=== PATIENT | male | born 1970 | race Caucasian/White ===

== ENCOUNTER 2016-11-11 17:24 | Inpatient (IN) | payer SELFPAY ==
[~2016-11-11] VITALS: Ht 185.4 cm; Wt 111.7 kg
[2016-11-11] VITALS (10 sets, daily range): BP systolic 134–178; BP diastolic 60–76; PULSE 79–86; RESP 13–27; TEMP 98.1; O2SAT 93–100; Ht 185.4 cm; Wt 111.7 kg
[~2016-11-11 17:24] MED LIST: ATEN25TA PO; GABA-329 PO; INSU100I14 SQ; INSU100V8 SQ
--- NOTE | 2016-11-11 17:48 | ERPDOC ---
Departure Disposition Decision Date: November 11, 2016 Disposition Decision Time: 19:17 Disposition: 02 TO [facility] Impression Impression Impression: Primary Impression: DKA (diabetic ketoacidoses) Additional Impression: Hyperkalemia Seen By: Mid-level only Referrals: STEVE ESCOBAR MD (Family) Problems/Meds/Labs Reviewed?: Yes Medications reviewed and manag: Yes Follow up care ordered?: Yes Mental Status: Alert HPI - Chest Pain General Chief Complaint: Dizzy Stated Complaint: CP, DIZZY Time Seen by Provider: 17:47 Source: patient HPI - Chest Pain Initial Comments 46 YO presents to ED with report of dizziness, numbness over entire body and nausea. Says that the numbness over the entire body has been for the past 2-3 weeks. Was worked up at [facility] with no etiology found. Patient says that numbness has continued (patient able to walk, talk, eat and drink). Reports being dizzy today and nauseated. Having difficulty standing up. Patient has been an insulin dependent diabetic since age 25. Patient does not check his blood sugars. states that patient has had some slurred speech today. Denies fever, chills, SOA, CP, abdominal pain, dysuria, ataxia. Allergies: Coded Allergies: codeine (Verified Allergy, Unknown, 11/11/16) Past History Past Medical History Metabolic: diabetes, hypertension Cardiac: DENIES: angina Respiratory: DENIES: asthma GI: DENIES: ulcers Male: DENIES: renal insufficiency Neurological: neuropathy Musculoskeletal: back pain Psychological: DENIES: depression Surgical History General: back Joint: carpal tunnel Family History Family PMH: FOUND: other (noncontributory) Vaccines Hx Influenza Vaccination: Yes Social History Sexuality: female partner Review of Systems Constitutional Constitutional: dizziness, weakness, DENIES: chills, fever Eyes General: DENIES: erythema, exudate Lids/Accessories: DENIES: erythema, swelling ENMT Ears: DENIES: pain Sinuses: DENIES: congestion, rhinorrhea Mouth/Throat: DENIES: sore throat Cardiovascular Cardiac: DENIES: chest pain, murmur Rhythm/Rate: DENIES: palpitations Pulmonary Respiratory: DENIES: cough, dyspnea GI Upper Abdomen: nausea, DENIES: pain Lower Abdomen: DENIES: diarrhea, pain General: DENIES: dysuria, pain Musculoskeletal General: pain (chronic back pain), DENIES: cramps Integumentary Skin: DENIES: color change, itching, rash Neurological General: numbness, DENIES: ataxia, change in strength, paralysis/paresis, weakness Psychiatric Psychiatric: DENIES: anxiety, depression, nervousness Physical Exam General General Nourishment: well nourished, well developed, adult General Body Habitus: well groomed Vitals and Pain First Documented Vital Signs Date Time Temp Pulse Resp B/P Pulse Ox O2 Delivery O2 Flow Rate FiO2 11/11/16 17:26 97.4 76 24 172/79 99 Room Air Weight: Kilograms: Height (feet): 5 Height (inches): 10 Triage Pain Scale: Eyes (brief) Eyes Brief: found: EOMI ENMT (brief) ENMT Brief: NOT FOUND: nasal exudate, nasal swelling Neck (brief) Neck: FOUND: trachea midline Respiratory (brief) Respiratory: FOUND: clear all [place], equal bilaterally, symmetrical Cardiovascular (brief) Cardiac: FOUND: regular rate, regular rhythm Abdomen (brief) Abdominal Brief: FOUND: bowel normo active x4, soft, NOT FOUND: tender Musculoskeletal (brief) Musculoskeletal Brief: NOT FOUND: deformity, loss of motion Integumentary (brief) Integumentary Brief: FOUND: dry, warm Neurologic Mental Status: FOUND: alert, oriented Sensation: FOUND: soft touch intact x4 ext DTR's : DTR Side: bilateral DTR Location: Triceps, Patellar DTR Grade: 2+ Psychiatric Attitude: FOUND: demanding Differential Diagnoses Considering: Acute [place]/Ischemia, Cardiac Dysrhythmia, CVA - Thrombotic, CVA - Hemorrhagic, DKA, Hypoglycemia, Long QT Syndrome, Orthostatic Hypotension, TIA, Vasovagal Reaction Progress Results/Orders Orders Procedure Category Date Status Time Cmp - Comprehensive LAB 11/11/16 Complete Metabolic 17:57 Cbc W/Auto LAB 11/11/16 Complete Diff-Reflex Manual 17:57 Troponin I W LAB 11/11/16 Complete Hemolysis Index 17:57 Ct Head W/O Contrast CT 11/11/16 Taken 17:57 Iv Lock (Ed Only) EDM 11/11/16 Transmitted 17:57 Orthostatic Bp/Pulse EDM 11/11/16 Transmitted 17:57 Ondansetron Inj PHA 11/11/16 Complete (Zofran) 18:00 Normal Saline (Normal PHA 11/11/16 Complete Saline Iv) 18:15 Ua, Dip Wreflex LAB 11/11/16 Logged Microsc & Body Care Manager 18:42 UA, LAB 11/11/16 Complete Dip&Micro(Complete) & 18:59 Normal Saline (Normal PHA 11/11/16 Complete Saline Iv) 19:30 Insulin Regular PHA 11/11/16 Complete (Novolin R) 19:30 Blood Gas, Venous - LAB 11/11/[address] In Facility: ED ADM 11/11/16 Transmitted Npo: Nothing By Mouth DIET 11/12/16 Transmitted Breakfast Manage Oxygen MAXIMINO 11/11/16 In Process Administration 19:48 Measure Vital Signs MAXIMINO 11/11/16 In Process 19:48 Blood Glucose MAXIMINO 11/11/16 In Process Assessment Bgm 19:48 Nurse To Order Lab MAXIMINO 11/11/16 In Process 19:48 Normal Saline (Normal PHA 11/11/16 Logged Saline Iv) 19:48 Normal Saline (Ns) PHA 11/11/16 Logged W/Insulin Regular 20:00 Dextrose 50% Pfs PHA 11/11/16 Logged (D50w) 20:00 Glucose Management MAXIMINO 11/11/16 In Process 19:48 Dka Iv Fluid Changes MAXIMINO 11/11/16 In Process 19:48 Oxygen, Continuous RT 11/11/16 Logged 19:48 Aspirin (Asa) PHA 11/12/16 Logged 09:00 Ondansetron Inj PHA 11/11/16 Logged (Zofran) 20:00 Metoclopramide PHA 11/11/16 Logged (Reglan Inj) 20:00 Heparin (Heparin PHA 11/12/16 Logged Sub-Q) 01:00 Pantoprazole PHA 11/11/16 Logged (Protonix Iv) 21:00 Compression Type Scd/ MAXIMINO 11/11/16 In Process Braden Hose 19:48 Bmp - Basic Metabolic LAB 11/11/16 Complete Panel 20:15 Bmp - Basic Metabolic LAB 11/11/16 Complete Panel 22:15 Nicotine Patch PHA 11/12/16 Logged (Nicoderm) 09:00 Normal Saline (Normal PHA 11/11/16 Logged Saline Iv) 21:15 Normal Saline (Normal PHA 11/11/16 Logged Saline Iv) 22:15 Blood Gas, Venous - LAB 11/11/16 Complete VBG 22:00 Blood Gas, Venous - LAB 11/12/16 Logged VBG Bmp - Basic Metabolic LAB 11/12/16 Logged Panel 00:00 Bmp - Basic Metabolic LAB 11/12/16 Logged Panel 02:00 Bmp - Basic Metabolic LAB 11/12/16 Logged Panel 04:00 Bmp - Basic Metabolic LAB 11/12/16 Logged Panel 06:00 Bmp - Basic Metabolic LAB 11/12/16 Logged Panel 08:00 Lab Results Laboratory Tests Test 11/11/16 18:13 11/11/16 18:26 11/11/16 18:50 11/11/16 18:59 Glucometer > 500mg/dL White Blood Count 11.9T/MM3 Red Blood Count 5.12M/MM3 Hemoglobin 15.6GM/DL Hematocrit 45.2% Mean Corpuscular Volume 88.3UM3 Mean Corpuscular Hemoglobin 30.5UUG Mean Corpuscular Hemoglobin Concent 34.5GM/DL RDW Standard Deviation 42.8FL Platelet Count 298T/MM3 Mean Platelet Volume 10.7UM3 Immature Granulocyte % (Auto) 0.3% Neutrophils (%) (Auto) 79.6% Lymphocytes (%) (Auto) 14.8% Monocytes (%) (Auto) 3.9% Eosinophils (%) (Auto) 0.8% Basophils (%) (Auto) 0.6% Absolute Immature Granulocyte (auto 0.03T/MM3 Absolute Neutrophils (auto) 9.5T/MM3 Absolute Lymphocytes (auto) 1.8T/MM3 Absolute Monocytes (auto) 0.5T/MM3 Absolute Eosinophils (auto) 0.1T/MM3 Absolute Basophils (auto) 0.1T/MM3 Turbidity < 20 < 20 Sodium Level 136MEQ/L 137MEQ/L Potassium Level 5.8MEQ/L 5.7MEQ/L Chloride Level 95MEQ/L 98MEQ/L Carbon Dioxide Level 10MEQ/L 7MEQ/L Anion Gap 31MEQ/L 32MEQ/L Blood Urea Nitrogen 32.0MG/DL 32.0MG/DL Creatinine 1.8MG/DL 1.7MG/DL Glomerular Filtration Rate Calc 41 43 BUN/Creatinine Ratio 18RATIO 19RATIO Glucose Level 677MG/DL 677MG/DL Calculated Osmolality 301MOSM/KG 303MOSM/KG Calcium Level 9.6MG/DL 9.0MG/DL Total Bilirubin 1.00MG/DL Icterus Index < 2 < 2 Aspartate Amino Transf (AST/SGOT) 16U/L Alanine Aminotransferase (ALT/SGPT) 36U/L Alkaline Phosphatase 142U/L Troponin I < 0.012ng/ml Total Protein 7.2G/DL Albumin 4.5G/DL Globulin 2.7G/DL Albumin/Globulin Ratio 1.7RATIO Chemistry Specimen Hemolysis < 15 < 15 Urine Collection Type Cleancatch-midstream Urine Color Yellow Urine Turbidity Clear Urine pH 5.5 Urine Specific [place] 1.020 Urine Protein 1+ Urine Glucose (UA) 3+ Urine Ketones 3+ Urine Blood 2+ Urine Nitrite Negative Urine Bilirubin Negative Urine Urobilinogen 0.2EU/DL Urine Leukocyte Esterase Negative Urine RBC 0-1/HPF Urine WBC 0-1/HPF Urine Bacteria None seen Urine Culture Indicated Cult not indicated Test 11/11/16 19:27 11/11/16 19:52 11/11/16 20:11 11/11/16 20:56 Glucometer > 500mg/dL > 500mg/dL 439mg/dL Venous Blood pH 7.090 Venous Blood Partial Pressure CO2 26MMHG Venous Blood Partial Pressure O2 36MMHG Venous Blood HCO3 8MEQ/L Venous Blood Total Carbon Dioxide 8.7MEQ/L Venous Blood Oxygen Saturation 45.0% Venous Blood Base Excess -20.5MMOL/L Oxygen Delivery Method (LAB) Room air Blood Gas Oxygen Liter Flow Blood Gas Oxygen Percent Given Test 11/11/16 21:49 11/11/16 22:56 11/12/16 00:04 Venous Blood pH 7.120 Venous Blood Partial Pressure CO2 26MMHG Venous Blood Partial Pressure O2 43MMHG Venous Blood HCO3 9MEQ/L Venous Blood Total Carbon Dioxide 9.3MEQ/L Venous Blood Oxygen Saturation 60.0% Venous Blood Base Excess -19.4MMOL/L Oxygen Delivery Method (LAB) Room air Blood Gas Oxygen Liter Flow Blood Gas Oxygen Percent Given Turbidity < 20 Sodium Level 138MEQ/L Potassium Level 5.6MEQ/L Chloride Level 103MEQ/L Carbon Dioxide Level 8MEQ/L Anion Gap 27MEQ/L Blood Urea Nitrogen 31.0MG/DL Creatinine 1.7MG/DL Glomerular Filtration Rate Calc 43 BUN/Creatinine Ratio 18RATIO Glucose Level 616MG/DL Glucometer 440mg/dL 419mg/dL 382mg/dL Calculated Osmolality 302MOSM/KG Calcium Level 8.3MG/DL Icterus Index < 2 Chemistry Specimen Hemolysis < 15 Medications Current ED Medications Ondansetron HCl 4 mg 4 mg O ONCE IV Last administered on 11/11/16 18:18; Start 11/11/16 at 18:00; Stop 11/11/16 at 18:01; Status DC Sodium Chloride (Normal Saline IV) 1,000 ml @ 0 mls/hr Q0M ONCE IV Last administered on 11/11/16 18:25; Start 11/11/16 at 18:15; Stop 11/11/16 at 18:16 ; Status DC Progress Progress 11.9 WBC, no shift N 136 K 5.8 CO2 10 BUN 32 creatinine 1.8 Trop <0.012 UA 3+ ketones EKG EKG : Rate: 60-100 Rhythm: sinus [place]: normal QRS: normal Intervals: normal ST/T: normal Interpreted by: signing physician (Dr. Sinclair) Consult/PCP Consult/PCP : Physician Contacted: Dr. Almaguer Time Called: 19:17 Type of discussion: Admit Discussion/PCP Discussion Details I discussed patient's HPI, past medical history, vital signs, labs, exam findings and treatment given in ED by Dr. Wilkes. Dr. Almaguer will admit patient to unit for DKA. Dr. Almaguer like an additional unit of fluid started and 8 units of regular insulin. CT CT : CT: Head no contrast Interpretation: Faxed Report SHARDA GARRIDO ACOUSTICAL CARPENTER November 11, 2016 17:48
--- NOTE | 2016-11-11 17:50 | NUR ---
PROVIDER El GARRIDO APRN AT BEDSIDE FOR EXAM.
[2016-11-11] MEDS ORDERED: ONDANSETRON 4mg/2ml INJECTION IV ONE (18:00)
[2016-11-11] MEDS ORDERED: INSU300I SQ (18:03)
[2016-11-11] MEDS ORDERED: FEXO30OR6 PO (18:03)
[2016-11-11] MEDS ORDERED: GABA-305 PO (18:04)
[2016-11-11] MEDS ORDERED: IBUP1TAB79 PO (18:04)
[2016-11-11] MEDS ORDERED: BISO1TAB7 PO (18:05)
[2016-11-11] MEDS ORDERED: ASPI81TA2 PO (18:06)
[2016-11-11] MEDS ORDERED: NORMAL SALINE 1,000 ML IV ONE ×3 (18:15→21:15)
--- NOTE | 2016-11-11 18:45 | NUR ---
STATUS PT WISHES TO SIT AT BEDSIDE TO VOID FOR URINE. PT BEGINS TO VOMIT WITH SITTING AFTER ZOFRAN ADM. PROVIDER NOTIFIED.
[2016-11-11 18:46] LABS: BASOPHILS # (AUTO) 0.1 T/MM3 (0-0.2); BASOPHILS % (AUTO) 0.6 % (0-2); EOSINOPHILS # (AUTO) 0.1 T/MM3 (0-0.5); EOSINOPHILS % (AUTO) 0.8 % (0-4); HCT - HEMATOCRIT 45.2 % (41-53); HGB - HEMOGLOBIN 15.6 GM/DL (13.5-17.5); IMMATURE GRANULOCYTE # (AUTO) 0.03 T/MM3 (0.00-0.03); IMMATURE GRANULOCYTE % (AUTO) 0.3 % (0.0-0.5); LYMPHOCYTES # (AUTO) 1.8 T/MM3 (1-4.8); LYMPHOCYTES % (AUTO) 14.8 % (23-45); MEAN CORPUSCULAR HGB 30.5 UUG (26-34); MEAN CORPUSCULAR HGB CONC(MCHC 34.5 GM/DL (31-37); MEAN CORPUSCULAR VOLUME 88.3 UM3 (80-100); MEAN PLATELET VOLUME 10.7 UM3 (9.4-12.4); MONOCYTES # (AUTO) 0.5 T/MM3 (0-0.8); MONOCYTES % (AUTO) 3.9 % (0-9.0); NEUTROPHILS #(AUTO)-ABSOLUTE 9.5 T/MM3 (1.8-7.7); NEUTROPHILS % (AUTO) 79.6 % (33-66); RED BLOOD COUNT 5.12 M/MM3 (4.50-5.90); WBC - WHITE BLOOD COUNT 11.9 T/MM3 (4.5-11.0)
[2016-11-11 18:51] LABS: ALBUMIN 4.5 G/DL (3.5-5.0); ALBUMIN/GLOBULIN RATIO 1.7 RATIO (1.1-2.2); ALKALINE PHOSPHATASE 142 U/L (38-126); ALT (SGPT) 36 U/L (21-72); ANION GAP 31 MEQ/L (5-15); AST (SGOT) 16 U/L (17-59); BUN/CREATININE RATIO 18 RATIO (6-26); CALCIUM 9.6 MG/DL (8.4-10.2); CHLORIDE 95 MEQ/L (98-107); CO2 - CARBON DIOXIDE 10 MEQ/L (22-30); CREATININE 1.8 MG/DL (0.8-1.5); GLOMERULAR FILTRATION RATE 41; POTASSIUM 5.8 MEQ/L (3.6-5); SODIUM 136 MEQ/L (134-144); TOTAL PROTEIN 7.2 G/DL (6.3-8.2)
--- NOTE | 2016-11-11 18:57 | NUR ---
VOID PT VOIDED 700ML CLEAR YELLOW URINE. SPECIMEN SENT TO LAB.
[2016-11-11 19:04] LABS: BLOOD, URINE 2+ (NEGATIVE); COLOR,URINE YELLOW (YELLOW); LEUKOCYTE ESTERASE ,URINE NEGATIVE (NEGATIVE); NITRITE,URINE NEGATIVE (NEGATIVE); UROBILINOGEN,URINE 0.2 EU/DL (NORMAL)
--- NOTE | 2016-11-11 19:04 | NUR ---
CT PT TO CT BY CART AT THIS TIME.
[2016-11-11 19:11] LABS: GLUCOSE 677 MG/DL (75-110)
[2016-11-11 19:15] LABS: BACTERIA,URINE NONE SEEN (NEGATIVE); RBC,URINE 0-1 /HPF (0-3); WBC,URINE 0-1 /HPF (0-5)
--- NOTE | 2016-11-11 19:16 | NUR ---
RETURN PT RETURNED FROM CT BY CART AT THIS TIME.
[2016-11-11] MEDS ORDERED: INSULIN REGULAR 100 UNIT/ML IV ONE (19:30)
--- NOTE | 2016-11-11 19:31 | NUR ---
PROVIDER El GARRIDO APRN AT BEDSIDE TO SPEAK WITH PT.
--- NOTE | 2016-11-11 19:57 | NUR ---
REPORT CALLED TO RAMY MCCLENDON ON CCU. DENIES QUESTIONS.
[2016-11-11 19:59] LABS: VBG TOTAL CO2 8.7 MEQ/L
[2016-11-11] MEDS ORDERED: METOCLOPRAMIDE 10mg/2ml INJECTION IV PRN (20:00)
[2016-11-11] MEDS ORDERED: INSULIN REGULAR 100 UNIT in NORMAL SALINE 100 ML IV SCH (20:00)
[2016-11-11] MEDS ORDERED: ONDANSETRON 4mg/2ml INJECTION IV PRN (20:00)
[2016-11-11] MEDS ORDERED: DEXTROSE 50% SYRINGE 50ml (Eq. 1 AMP) IV ONE (20:00)
--- NOTE | 2016-11-11 20:15 | NUR ---
ADMIT PT TAKEN TO CCU, BED 2 BY CART WITH PORTABLE PULSE AND PULSE OX. VSS. PT SLIDES TO CCU BED, TOLERATES ACTIVITY WELL.
--- NOTE | 2016-11-11 20:25 | NUR ---
RECEIVED TO CCU 2 AT THIS TIME, IN NO ACUTE DISTRESS, WILL CONTINUE TO MONITOR.
--- NOTE | 2016-11-11 20:26 | NUR ---
TELEHOSPITALIST DR ODEN AT BEDSIDE VIA ROBOT AT THIS TIME.
[2016-11-11 20:28] LABS: ANION GAP 32 MEQ/L (5-15); BUN/CREATININE RATIO 19 RATIO (6-26); CHLORIDE 98 MEQ/L (98-107); CREATININE 1.7 MG/DL (0.8-1.5); GLOMERULAR FILTRATION RATE 43; POTASSIUM 5.7 MEQ/L (3.6-5); SODIUM 137 MEQ/L (134-144)
[2016-11-11 20:41] LABS: CO2 - CARBON DIOXIDE 7 MEQ/L (22-30); GLUCOSE 677 MG/DL (75-110)
[2016-11-11] MEDS: PANTOPRAZOLE 40mg INJECTION IV SCH (20:46)
[2016-11-11] MEDS: NICOTINE 14 MG PATCH TD SCH (20:47)
[2016-11-11] MEDS: HEPARIN SUB-Q 5,000 unit/0.5ml vial SQ SCH (20:47)
[2016-11-11] MEDS: NORMAL SALINE 1,000 ML IV SCH ×2 (20:48→23:38)
--- NOTE | 2016-11-11 20:52 | HPPDOC ---
HPI - Adult Date DATE: 11/11/16 TIME: 20:37 General Chief Complaint: nausea and vomiting History of Present Illness This is a 46 y/o male with a history of type 1 DM. The patient currently without insurance and has not been checking his sugars. The patient did qualify for assistance program for insulin. the patient reports his whole body being numb over the past 3 weeks. The patient over the past 24 hours has had nausea and vmoiting and increased dizziness and sense that he could pass out. He presents to our ED and is found to be in acute DKA. The patient does not demonstrate any acute infection. Because of his neuro symptoms the pateint did have a CT of his head done which did not demonstrate acute process. The pateint will be admitted into the ICU with a DKA protocol. Past Medical History Past Medical History DM1 HTN diabetic neuropathy Surgical History Patient's Surgical History: carpal tunnel bilaterally left hand back surgery x 2 Current Medications Home Meds Reported Medications Aspirin (Aspirin) 81 Mg Tab.chew, 81 MG PO DAILY 11/11/16 Bisoprol/Hydrochlorothiazide (Bisoprolol-Hctz 10-6.25 mg Tab) 1 Tab Tablet, 1 TAB PO DAILY 11/11/16 Gabapentin (Gabapentin) 600 Mg Tablet, 600 MG PO HS 11/11/16 Ibuprofen/Diphenhydramine Cit (Advil Pm Caplet) 1 Each Tablet, 2 CAP PO HS 11/11/16 Fexofenadine HCl (Fexofenadine HCl) 30 Mg/5 Ml Oral.susp, 10 ML PO HS 11/11/16 Insulin Glargine,Hum.rec.anlog (Toujeo Solostar) 300 Unit/1 Ml Insuln.pen, 30 UNIT SQ DAILY 11/11/16 Insulin Lispro (Humalog) 100 Unit/1 Ml Insuln.pen, 30 UNIT SQ TID, SYRINGE 04/10/15 Allergies: Coded Allergies: codeine (Verified Allergy, Unknown, 11/11/16) Family History Family History: unkown at this time Social History Smoking Status: Current every day smoker Substance Use Type: does not use Alcohol Intake: none Marital Status: Single Sexuality: female partner Housing: apartment Household Members: significant other Current Occupational Status: disabled Review of Systems All Other Systems All Other Systems: Reviewed (remainder of 10-point ROS Neg.) Comments no headache, no change in vision, no hearing changes, dry mouth with "numb tongue" (see HPI). no neck pain, no chest pain, no Shortness of breath, no cough , no PND, no orthopnea, mild epigastric abdomen pain, nausea and vomiting today , no change in BM, frequent urination, no pain with urination, no increased edema, no focal neuro complaints, just total body doesn't feel correct. 10 point ROS otherwise negative except for outlined aboe. Physical Exam General General Nourishment: well nourished, well developed, obese, apparent age, adult General Body Habitus: disheveled Vital Signs Vital Signs Date Time Temp Pulse Resp B/P Pulse Ox O2 Delivery O2 Flow Rate FiO2 11/11/16 20:23 178/76 11/11/16 20:15 84 20 100 Room Air 11/11/16 17:26 97.4 Height (Feet): 6 Height (Inches): 1.00 Eyes Brief: FOUND: EOMI, PERRL, NOT FOUND: other, scleral icterus, trauma Neck Brief: FOUND: midline, NOT FOUND: JVD, nuchal rigidity, other, spasm, tenderness, tracheal deviation Respiratory Brief: FOUND: clear all [place], equal bilaterally, symmetrical, NOT FOUND: other, rales, spasm, tenderness, wheezes Cardiovascular (brief) Cardiac Brief: FOUND: regular rate, regular rhythm, NOT FOUND: click, gallop, murmur, other, pedal edema, peripheral edema, rub Abdomen (brief) Abdominal Brief: FOUND: BS normo active x4, soft, NOT FOUND: distended, other, tender Musculoskeletal (brief) Musculoskeletal Brief: NOT FOUND: deformity, extremities move equally, loss of motion, other, spasm, tenderness Comments foot drop to his left leg Integumentary (brief) Comments dry Neurologic (brief) Comments grossly intact. no motor deficit. not able to ascertain soft touch exam remotely. defer to on site mD Neurologic RN Documented GCS Eye Opening: Verbal: Motor: Total: Psychiatric (brief) FOUND: alert, oriented Comments flat affect Laboratory Laboratory Tests Test 11/11/16 18:13 11/11/16 18:26 11/11/16 18:50 11/11/16 18:59 Glucometer > 500mg/dL White Blood Count 11.9T/MM3 Red Blood Count 5.12M/MM3 Hemoglobin 15.6GM/DL Hematocrit 45.2% Mean Corpuscular Volume 88.3UM3 Mean Corpuscular Hemoglobin 30.5UUG Mean Corpuscular Hemoglobin Concent 34.5GM/DL RDW Standard Deviation 42.8FL Platelet Count 298T/MM3 Mean Platelet Volume 10.7UM3 Immature Granulocyte % (Auto) 0.3% Neutrophils (%) (Auto) 79.6% Lymphocytes (%) (Auto) 14.8% Monocytes (%) (Auto) 3.9% Eosinophils (%) (Auto) 0.8% Basophils (%) (Auto) 0.6% Absolute Immature Granulocyte (auto 0.03T/MM3 Absolute Neutrophils (auto) 9.5T/MM3 Absolute Lymphocytes (auto) 1.8T/MM3 Absolute Monocytes (auto) 0.5T/MM3 Absolute Eosinophils (auto) 0.1T/MM3 Absolute Basophils (auto) 0.1T/MM3 Turbidity < 20 < 20 Sodium Level 136MEQ/L 137MEQ/L Potassium Level 5.8MEQ/L 5.7MEQ/L Chloride Level 95MEQ/L 98MEQ/L Carbon Dioxide Level 10MEQ/L Anion Gap 31MEQ/L 32MEQ/L Blood Urea Nitrogen 32.0MG/DL 32.0MG/DL Creatinine 1.8MG/DL 1.7MG/DL Glomerular Filtration Rate Calc 41 43 BUN/Creatinine Ratio 18RATIO 19RATIO Glucose Level 677MG/DL Calculated Osmolality 301MOSM/KG 303MOSM/KG Calcium Level 9.6MG/DL 9.0MG/DL Total Bilirubin 1.00MG/DL Icterus Index < 2 < 2 Aspartate Amino Transf (AST/SGOT) 16U/L Alanine Aminotransferase (ALT/SGPT) 36U/L Alkaline Phosphatase 142U/L Troponin I < 0.012ng/ml Total Protein 7.2G/DL Albumin 4.5G/DL Globulin 2.7G/DL Albumin/Globulin Ratio 1.7RATIO Chemistry Specimen Hemolysis < 15 < 15 Urine Collection Type Cleancatch-midstream Urine Color Yellow Urine Turbidity Clear Urine pH 5.5 Urine Specific [place] 1.020 Urine Protein 1+ Urine Glucose (UA) 3+ Urine Ketones 3+ Urine Blood 2+ Urine Nitrite Negative Urine Bilirubin Negative Urine Urobilinogen 0.2EU/DL Urine Leukocyte Esterase Negative Urine RBC 0-1/HPF Urine WBC 0-1/HPF Urine Bacteria None seen Urine Culture Indicated Cult not indicated Test 11/11/16 19:27 11/11/16 19:52 11/11/16 20:11 Glucometer > 500mg/dL > 500mg/dL Venous Blood pH 7.090 Venous Blood Partial Pressure CO2 26MMHG Venous Blood Partial Pressure O2 36MMHG Venous Blood HCO3 8MEQ/L Venous Blood Total Carbon Dioxide 8.7MEQ/L Venous Blood Oxygen Saturation 45.0% Venous Blood Base Excess -20.5MMOL/L Oxygen Delivery Method (LAB) Room air Blood Gas Oxygen Liter Flow Blood Gas Oxygen Percent Given Radiology CT head reported as negative per ED MD Assessment & Plan Assessment 1. DKA acute POA: this is a very sig acidosis with pH of 7.09. Patient treated with 2 liters of NS in the ED and start insulin gtt. because of the degree of acidosis will check VBG in 2 hours. If not any better will need to start HCO3 gtt. K is elevated and soon will drop with improved acid/base. usual parameters for supplementation. as whole body depleted at this time. At the crux of this patient's issues is no insurance, no ability to check sugars. Junior need to address with administrator social welfare prior to discharge 2. ARF POA: patient's cr up to 1.9 from 1.0. hydrate and repeat in the am. unlikely ATN. most likely pre renal 3. HTN chronic POA: hold antihypertensive meds acutely as blood pressure somewhat low on presentation 4. tobacco abuse chronic POA: patch, pastoral counselor to stop, patient not very interested 5. dVT ppx: SCD, heparin 6. gastric ppx: PPI 7. social dysfunction: need to consult administrator social welfare priro to discharge to address access to supplies 8. foot drop left leg chronic POA: s/p back surgery ICU admission 45 min critical care time spent. DVT Prophylaxis: SCD'S, SQ Heparin Code Status Full Code Hospital Course Summary Disclaimer The hospital course summary below is not to be considered part of the above Progress Note. JEN ODEN MD November 11, 2016 20:40
--- NOTE | 2016-11-11 21:00 | NUR ---
FAMILY PT'S S.Nomi GIDEON IS AT BEDSIDE, PT VERBALIZES HIS WISHES FOR HER TO MAKE MEDICAL DECISIONS FOR HIM IN THE EVEN THAT HE IS UNABLE TO DO SO HIMSELF. PT STATES HE DOES NOT HAVE DPOA, LIVING WILL OR ADVANCED DIRECTIVES AND DENIES NEED FOR EDUCATION/CONSULT FOR ADDITIONAL INFO AT THIS TIME.
[2016-11-11 21:56] LABS: VBG TOTAL CO2 9.3 MEQ/L
[2016-11-11] MEDS ORDERED: NORMAL SALINE 1,000 ML IV SCH (22:15)
[2016-11-11 22:16] LABS: ANION GAP 27 MEQ/L (5-15); BUN/CREATININE RATIO 18 RATIO (6-26); CALCIUM 8.3 MG/DL (8.4-10.2); CHLORIDE 103 MEQ/L (98-107); CREATININE 1.7 MG/DL (0.8-1.5); GLOMERULAR FILTRATION RATE 43; POTASSIUM 5.6 MEQ/L (3.6-5); SODIUM 138 MEQ/L (134-144)
[2016-11-11 22:17] LABS: CO2 - CARBON DIOXIDE 8 MEQ/L (22-30); GLUCOSE 616 MG/DL (75-110)
[2016-11-12] VITALS (19 sets, daily range): BP systolic 107–159; BP diastolic 58–76; PULSE 69–85; RESP 11–42; TEMP 97.6–98.6; O2SAT 96–100
[2016-11-12 00:38] LABS: ANION GAP 23 MEQ/L (5-15); BUN/CREATININE RATIO 19 RATIO (6-26); CALCIUM 8.1 MG/DL (8.4-10.2); CHLORIDE 107 MEQ/L (98-107); CO2 - CARBON DIOXIDE 11 MEQ/L (22-30); CREATININE 1.6 MG/DL (0.8-1.5); GLOMERULAR FILTRATION RATE 47; GLUCOSE 459 MG/DL (75-110); POTASSIUM 5.1 MEQ/L (3.6-5); SODIUM 141 MEQ/L (134-144)
[2016-11-12] MEDS ORDERED: ASPIRIN 325 MG TABLET PO ONE (01:15)
[2016-11-12 02:25] LABS: ANION GAP 18 MEQ/L (5-15); BUN/CREATININE RATIO 20 RATIO (6-26); CALCIUM 8.3 MG/DL (8.4-10.2); CHLORIDE 110 MEQ/L (98-107); CO2 - CARBON DIOXIDE 14 MEQ/L (22-30); CREATININE 1.6 MG/DL (0.8-1.5); GLOMERULAR FILTRATION RATE 47; GLUCOSE 324 MG/DL (75-110); POTASSIUM 4.7 MEQ/L (3.6-5); SODIUM 142 MEQ/L (134-144)
[2016-11-12 02:35] LABS: VBG TOTAL CO2 14.9 MEQ/L
--- NOTE | 2016-11-12 03:11 | NUR ---
BGM/PT CONCERNS PT VERBALIZES THAT WHEN HIS SUGAR IS BELOW 200 HE GET "REAL SHAKEY". PT REQUESTS THAT RN NOT INCREASE INSULIN DRIP AT THIS TIME, STATES "BETTER TAKE IT SLOW". 0200 BGM WAS 271, 0300 BMG 270. PT STATES "IF IT GETS MUCH LOWER THAN THAT I MIGHT START TO GET SICK". WILL LEAVE INSULIN DRIP AT CURRENT RATE AND RECHECK IN 1HR & CONTACT DR IF ON PT CONCERNS IF NECESSARY.
[2016-11-12 04:34] LABS: ANION GAP 15 MEQ/L (5-15); BUN/CREATININE RATIO 19 RATIO (6-26); CALCIUM 8.4 MG/DL (8.4-10.2); CHLORIDE 111 MEQ/L (98-107); CO2 - CARBON DIOXIDE 18 MEQ/L (22-30); CREATININE 1.6 MG/DL (0.8-1.5); GLOMERULAR FILTRATION RATE 47; GLUCOSE 218 MG/DL (75-110); POTASSIUM 4.3 MEQ/L (3.6-5); SODIUM 144 MEQ/L (134-144)
[2016-11-12] MEDS ORDERED: D5-1/2 NS KCL 20 MEQ 1,000 ML IV SCH (05:00)
[2016-11-12] MEDS ORDERED: POTASSIUM CHLORIDE 20 MEQ in D5NS 1,000 ML IV SCH (05:00)
[2016-11-12] MEDS ORDERED: INSULIN REGULAR 100 UNIT in NORMAL SALINE 100 ML IV SCH (06:45)
[2016-11-12 06:48] LABS: ANION GAP 12 MEQ/L (5-15); BUN/CREATININE RATIO 23 RATIO (6-26); CALCIUM 8.3 MG/DL (8.4-10.2); CHLORIDE 112 MEQ/L (98-107); CO2 - CARBON DIOXIDE 20 MEQ/L (22-30); CREATININE 1.3 MG/DL (0.8-1.5); GLOMERULAR FILTRATION RATE 59; GLUCOSE 149 MG/DL (75-110); POTASSIUM 4.1 MEQ/L (3.6-5); SODIUM 144 MEQ/L (134-144)
--- NOTE | 2016-11-12 07:50 | NUR ---
Exam per history patient has Left leg numbness since surgery, right arm is numb and right leg and left arm now have some numbness and tingling. Complains of headache.
--- NOTE | 2016-11-12 08:10 | NUR ---
BGM down to 124, regular insulin gtt decreased to 1u/hour. D5 1/2 ns with 20 KCL/liter running.
[2016-11-12] MEDS ORDERED: NICOTINE PATCH REMOVAL TD SCH (09:00)
[2016-11-12] MEDS ORDERED: ASPIRIN 81 MG CHEWABLE TABLET PO SCH (09:00)
[2016-11-12] MEDS: NICOTINE 14 MG PATCH TD SCH (09:58)
[2016-11-12] MEDS: HEPARIN SUB-Q 5,000 unit/0.5ml vial SQ SCH (09:59)
[2016-11-12] MEDS: PANTOPRAZOLE 40mg INJECTION IV SCH (09:59)
[2016-11-12 10:41] LABS: ANION GAP 12 MEQ/L (5-15); BUN/CREATININE RATIO 22 RATIO (6-26); CALCIUM 8.2 MG/DL (8.4-10.2); CHLORIDE 113 MEQ/L (98-107); CO2 - CARBON DIOXIDE 20 MEQ/L (22-30); CREATININE 1.3 MG/DL (0.8-1.5); GLOMERULAR FILTRATION RATE 59; GLUCOSE 140 MG/DL (75-110); POTASSIUM 4.2 MEQ/L (3.6-5); SODIUM 145 MEQ/L (134-144)
--- NOTE | 2016-11-12 10:52 | DI ---
Indication: ITS.REASON: Dizziness, paresthesia PROCEDURE: CT HEAD W/O CONTRAST: Encounter: Initial Comparison: April 09, 2015 Technique: Axial CT images through the head were performed without contrast. Iterative Reconstruction dose reducing technique was utilized. FINDINGS: The ventricles are of normal size, shape, and configuration for the patient's age. There is no evidence of acute intracranial hemorrhage, midline displacement, or mass effect. The CT attenuation of the brain parenchyma is normal within the cerebellum, brain stem, and cerebral hemispheres. The tympanic cavities and mastoid air cells are free of appreciable disease. There are no definite fractures of the skull base, calvarium, or visualized portion of the midface. Sinus disease. IMPRESSION: No CT evidence of acute intracranial abnormality. There is a preliminary report by [employer]. .
--- NOTE | 2016-11-12 12:30 | NUR ---
IV insulin and D5 DCd as ordered and lunch given.
[2016-11-12] MEDS ORDERED: INSULIN ASPART 100 UNIT/ML SQ ONE (14:40)
--- NOTE | 2016-11-12 15:00 | NUR ---
Patient concerned about the expense of having to stay in the hospital now that his blood sugars and chemistries are stable. Dr. Hughes notified.
--- NOTE | 2016-11-12 17:10 | NUR ---
Dismissed home after instruction given by Dr Hughes and me. No new prescriptions, but Joan in case management is to follow up with him regarding help with blood glucose monitoring supplies. Message left on her hospital voice mail as instructed by Max in care management. Patient also has follow up appointment with Dr Mendenhall.
[2016-11-12] MEDS ORDERED: INSULIN ASPART 100 UNIT/ML SQ SCH (17:15)
--- NOTE | 2016-11-12 19:05 | DSPDOC ---
General Date Date DATE: 11/12/16 TIME: 16:45 Attending Physician Jesús Forrest MD Admitting Physician Jesús Forrest MD Consulting Physician Admitting Diagnosis DKA, hyperkalemia Discharge Diagnosis Diabetic ketoacidosis, hyperkalemia, diabetic neuropathy, financial deficit Laboratory Laboratory Tests Test 11/11/16 18:13 11/11/16 18:26 11/11/16 18:50 11/11/16 18:59 Glucometer > 500mg/dL (75-110) White Blood Count 11.9T/MM3 (4.5-11.0) Red Blood Count 5.12M/MM3 (4.50-5.90) Hemoglobin 15.6GM/DL (13.5-17.5) Hematocrit 45.2% (41-53) Mean Corpuscular Volume 88.3UM3 (80-100) Mean Corpuscular Hemoglobin 30.5UUG (26-34) Mean Corpuscular Hemoglobin Concent 34.5GM/DL (31-37) RDW Standard Deviation 42.8FL (36.9-50.2) Platelet Count 298T/MM3 (130-400) Mean Platelet Volume 10.7UM3 (9.4-12.4) Immature Granulocyte % (Auto) 0.3% (0.0-0.5) Neutrophils (%) (Auto) 79.6% (33-66) Lymphocytes (%) (Auto) 14.8% (23-45) Monocytes (%) (Auto) 3.9% (0-9.0) Eosinophils (%) (Auto) 0.8% (0-4) Basophils (%) (Auto) 0.6% (0-2) Absolute Immature Granulocyte (auto 0.03T/MM3 (0.00-0.03) Absolute Neutrophils (auto) 9.5T/MM3 (1.8-7.7) Absolute Lymphocytes (auto) 1.8T/MM3 (1-4.8) Absolute Monocytes (auto) 0.5T/MM3 (0-0.8) Absolute Eosinophils (auto) 0.1T/MM3 (0-0.5) Absolute Basophils (auto) 0.1T/MM3 (0-0.2) Turbidity < 20 (0-20) < 20 (0-20) Sodium Level 136MEQ/L (134-144) 137MEQ/L (134-144) Potassium Level 5.8MEQ/L (3.6-5) 5.7MEQ/L (3.6-5) Chloride Level 95MEQ/L (98-107) 98MEQ/L (98-107) Carbon Dioxide Level 10MEQ/L (22-30) 7MEQ/L (22-30) Anion Gap 31MEQ/L (5-15) 32MEQ/L (5-15) Blood Urea Nitrogen 32.0MG/DL (9-20) 32.0MG/DL (9-20) Creatinine 1.8MG/DL (0.8-1.5) 1.7MG/DL (0.8-1.5) Glomerular Filtration Rate Calc 41 43 BUN/Creatinine Ratio 18RATIO (6-26) 19RATIO (6-26) Glucose Level 677MG/DL (75-110) 677MG/DL (75-110) Calculated Osmolality 301MOSM/KG (261-280) 303MOSM/KG (261-280) Calcium Level 9.6MG/DL (8.4-10.2) 9.0MG/DL (8.4-10.2) Total Bilirubin 1.00MG/DL (0.20-1.30) Icterus Index < 2 (0-7) < 2 (0-7) Aspartate Amino Transf (AST/SGOT) 16U/L (17-59) Alanine Aminotransferase (ALT/SGPT) 36U/L (21-72) Alkaline Phosphatase 142U/L (38-126) Troponin I < 0.012ng/ml (0-0.12) Total Protein 7.2G/DL (6.3-8.2) Albumin 4.5G/DL (3.5-5.0) Globulin 2.7G/DL (2.4-3.6) Albumin/Globulin Ratio 1.7RATIO (1.1-2.2) Chemistry Specimen Hemolysis < 15 (0-25) < 15 (0-25) Urine Collection Type Cleancatch-midstream Urine Color Yellow (YELLOW) Urine Turbidity Clear (CLEAR) Urine pH 5.5 (5.0-8.0) Urine Specific Gaylord 1.020 (1.015-1.025) Urine Protein 1+ (NEGATIVE) Urine Glucose (UA) 3+ (NEGATIVE) Urine Ketones 3+ (NEGATIVE) Urine Blood 2+ (NEGATIVE) Urine Nitrite Negative (NEGATIVE) Urine Bilirubin Negative (NEGATIVE) Urine Urobilinogen 0.2EU/DL (NORMAL) Urine Leukocyte Esterase Negative (NEGATIVE) Urine RBC 0-1/HPF (0-3) Urine WBC 0-1/HPF (0-5) Urine Bacteria None seen (NEGATIVE) Urine Culture Indicated Cult not indicated Test 11/11/16 19:27 11/11/16 19:52 11/11/16 20:11 11/11/16 20:56 Glucometer > 500mg/dL (75-110) > 500mg/dL (75-110) 439mg/dL (75-110) Venous Blood pH 7.090 (7.31-7.41) Venous Blood Partial Pressure CO2 26MMHG (40-52) Venous Blood Partial Pressure O2 36MMHG (40-52) Venous Blood HCO3 8MEQ/L (22-26) Venous Blood Total Carbon Dioxide 8.7MEQ/L Venous Blood Oxygen Saturation 45.0% Venous Blood Base Excess -20.5MMOL/L (-2.0-2.0) Oxygen Delivery Method (LAB) Room air Blood Gas Oxygen Liter Flow Blood Gas Oxygen Percent Given Test 11/11/16 21:49 11/11/16 22:56 11/12/16 00:04 11/12/16 00:14 Venous Blood pH 7.120 (7.31-7.41) Venous Blood Partial Pressure CO2 26MMHG (40-52) Venous Blood Partial Pressure O2 43MMHG (40-52) Venous Blood HCO3 9MEQ/L (22-26) Venous Blood Total Carbon Dioxide 9.3MEQ/L Venous Blood Oxygen Saturation 60.0% Venous Blood Base Excess -19.4MMOL/L (-2.0-2.0) Oxygen Delivery Method (LAB) Room air Blood Gas Oxygen Liter Flow Blood Gas Oxygen Percent Given Turbidity < 20 (0-20) < 20 (0-20) Sodium Level 138MEQ/L (134-144) 141MEQ/L (134-144) Potassium Level 5.6MEQ/L (3.6-5) 5.1MEQ/L (3.6-5) Chloride Level 103MEQ/L (98-107) 107MEQ/L (98-107) Carbon Dioxide Level 8MEQ/L (22-30) 11MEQ/L (22-30) Anion Gap 27MEQ/L (5-15) 23MEQ/L (5-15) Blood Urea Nitrogen 31.0MG/DL (9-20) 31.0MG/DL (9-20) Creatinine 1.7MG/DL (0.8-1.5) 1.6MG/DL (0.8-1.5) Glomerular Filtration Rate Calc 43 47 BUN/Creatinine Ratio 18RATIO (6-26) 19RATIO (6-26) Glucose Level 616MG/DL (75-110) 459MG/DL (75-110) Glucometer 440mg/dL (75-110) 419mg/dL (75-110) 382mg/dL (75-110) Calculated Osmolality 302MOSM/KG (261-280) 298MOSM/KG (261-280) Calcium Level 8.3MG/DL (8.4-10.2) 8.1MG/DL (8.4-10.2) Icterus Index < 2 (0-7) < 2 (0-7) Chemistry Specimen Hemolysis < 15 (0-25) < 15 (0-25) Test 11/12/16 00:58 11/12/16 02:00 11/12/16 02:30 11/12/16 03:08 Glucometer 316mg/dL (75-110) 271mg/dL (75-110) 270mg/dL (75-110) Turbidity < 20 (0-20) Sodium Level 142MEQ/L (134-144) Potassium Level 4.7MEQ/L (3.6-5) Chloride Level 110MEQ/L (98-107) Carbon Dioxide Level 14MEQ/L (22-30) Anion Gap 18MEQ/L (5-15) Blood Urea Nitrogen 32.0MG/DL (9-20) Creatinine 1.6MG/DL (0.8-1.5) Glomerular Filtration Rate Calc 47 BUN/Creatinine Ratio 20RATIO (6-26) Glucose Level 324MG/DL (75-110) Calculated Osmolality 293MOSM/KG (261-280) Calcium Level 8.3MG/DL (8.4-10.2) Icterus Index < 2 (0-7) Chemistry Specimen Hemolysis < 15 (0-25) Venous Blood pH 7.260 (7.31-7.41) Venous Blood Partial Pressure CO2 31MMHG (40-52) Venous Blood Partial Pressure O2 45MMHG (40-52) Venous Blood HCO3 14MEQ/L (22-26) Venous Blood Total Carbon Dioxide 14.9MEQ/L Venous Blood Oxygen Saturation 73.0% Venous Blood Base Excess -12.0MMOL/L (-2.0-2.0) Oxygen Delivery Method (LAB) Room air Blood Gas Oxygen Liter Flow Blood Gas Oxygen Percent Given Test 11/12/16 04:08 11/12/16 05:04 11/12/16 05:59 11/12/16 06:14 Turbidity < 20 (0-20) < 20 (0-20) Sodium Level 144MEQ/L (134-144) 144MEQ/L (134-144) Potassium Level 4.3MEQ/L (3.6-5) 4.1MEQ/L (3.6-5) Chloride Level 111MEQ/L (98-107) 112MEQ/L (98-107) Carbon Dioxide Level 18MEQ/L (22-30) 20MEQ/L (22-30) Anion Gap 15MEQ/L (5-15) 12MEQ/L (5-15) Blood Urea Nitrogen 31.0MG/DL (9-20) 30.0MG/DL (9-20) Creatinine 1.6MG/DL (0.8-1.5) 1.3MG/DL (0.8-1.5) Glomerular Filtration Rate Calc 47 59 BUN/Creatinine Ratio 19RATIO (6-26) 23RATIO (6-26) Glucose Level 218MG/DL (75-110) 149MG/DL (75-110) Glucometer 196mg/dL (75-110) 176mg/dL (75-110) 180mg/dL (75-110) Calculated Osmolality 291MOSM/KG (261-280) 286MOSM/KG (261-280) Calcium Level 8.4MG/DL (8.4-10.2) 8.3MG/DL (8.4-10.2) Icterus Index < 2 (0-7) < 2 (0-7) Chemistry Specimen Hemolysis < 15 (0-25) < 15 (0-25) Test 11/12/16 06:56 11/12/16 08:09 11/12/16 09:09 11/12/16 10:12 Glucometer 147mg/dL (75-110) 121mg/dL (75-110) 129mg/dL (75-110) 124mg/dL (75-110) Test 11/12/16 10:13 11/12/16 11:54 11/12/16 14:33 Turbidity < 20 (0-20) Sodium Level 145MEQ/L (134-144) Potassium Level 4.2MEQ/L (3.6-5) Chloride Level 113MEQ/L (98-107) Carbon Dioxide Level 20MEQ/L (22-30) Anion Gap 12MEQ/L (5-15) Blood Urea Nitrogen 29.0MG/DL (9-20) Creatinine 1.3MG/DL (0.8-1.5) Glomerular Filtration Rate Calc 59 BUN/Creatinine Ratio 22RATIO (6-26) Glucose Level 140MG/DL (75-110) Calculated Osmolality 287MOSM/KG (261-280) Calcium Level 8.2MG/DL (8.4-10.2) Icterus Index < 2 (0-7) Chemistry Specimen Hemolysis < 15 (0-25) Glucometer 166mg/dL (75-110) 246mg/dL (75-110) History of Present Illness History of Present Illness This is a 46 y/o male with a history of type 1 DM. The patient currently without insurance and has not been checking his sugars. The patient did qualify for assistance program for insulin. the patient reports his whole body being numb over the past 3 weeks. The patient over the past 24 hours has had nausea and vmoiting and increased dizziness and sense that he could pass out. He presents to our ED and is found to be in acute DKA. The patient does not demonstrate any acute infection. Because of his neuro symptoms the pateint did have a CT of his head done which did not demonstrate acute process. The pateint will be admitted into the ICU with a DKA protocol. Past Medical History Adult Past Medical History Past Medical History DM1 HTN diabetic neuropathy Surgical History Patient's Surgical History: carpal tunnel bilaterally left hand back surgery x 2 Current Medications Home Meds Reported Medications Aspirin (Aspirin) 81 Mg Tab.chew, 81 MG PO DAILY 11/11/16 Bisoprol/Hydrochlorothiazide (Bisoprolol-Hctz 10-6.25 mg Tab) 1 Tab Tablet, 1 TAB PO DAILY 11/11/16 Gabapentin (Gabapentin) 600 Mg Tablet, 600 MG PO HS 11/11/16 Ibuprofen/Diphenhydramine Cit (Advil Pm Caplet) 1 Each Tablet, 2 CAP PO HS 11/11/16 Fexofenadine HCl (Fexofenadine HCl) 30 Mg/5 Ml Oral.susp, 10 ML PO HS 11/11/16 Insulin Glargine,Hum.rec.anlog (Toujeo Solostar) 300 Unit/1 Ml Insuln.pen, 30 UNIT SQ DAILY 11/11/16 Insulin Lispro (Humalog) 100 Unit/1 Ml Insuln.pen, 30 UNIT SQ TID, SYRINGE 04/10/15 Allergies: Coded Allergies: codeine (Verified Allergy, Unknown, 11/11/16) Family History Family History: unkown at this time Social History Smoking Status: Current every day smoker Substance Use Type: does not use Alcohol Intake: none Marital Status: Single Sexuality: female partner Housing: apartment Household Members: significant other Current Occupational Status: disabled Review of Systems Review of Systems All Other Systems All Other Systems: Reviewed (remainder of 10-point ROS Neg.) Comments no headache, no change in vision, no hearing changes, dry mouth with "numb tongue" (see HPI). no neck pain, no chest pain, no Shortness of breath, no cough , no PND, no orthopnea, mild epigastric abdomen pain, nausea and vomiting today , no change in BM, frequent urination, no pain with urination, no increased edema, no focal neuro complaints, just total body doesn't feel correct. 10 point ROS otherwise negative except for outlined aboe. Physical Exam Physical Exam General General Nourishment: well nourished, well developed, obese, apparent age, adult General Body Habitus: disheveled Vital Signs Vital Signs Date Time Temp Pulse Resp B/P Pulse Ox O2 Delivery O2 Flow Rate FiO2 11/11/16 20:23 178/76 11/11/16 20:15 84 20 100 Room Air 11/11/16 17:26 97.4 Height (Feet): 6 Height (Inches): 1.00 Eyes Brief: FOUND: EOMI, PERRL, NOT FOUND: other, scleral icterus, trauma Neck Brief: FOUND: midline, NOT FOUND: JVD, nuchal rigidity, other, spasm, tenderness, tracheal deviation Respiratory Brief: FOUND: clear all radford, equal bilaterally, symmetrical, NOT FOUND: other, rales, spasm, tenderness, wheezes Cardiovascular (brief) Cardiac Brief: FOUND: regular rate, regular rhythm, NOT FOUND: click, gallop, murmur, other, pedal edema, peripheral edema, rub Abdomen (brief) Abdominal Brief: FOUND: BS normo active x4, soft, NOT FOUND: distended, other, tender Musculoskeletal (brief) Musculoskeletal Brief: NOT FOUND: deformity, extremities move equally, loss of motion, other, spasm, tenderness Comments foot drop to his left leg Integumentary (brief) Comments dry Neurologic (brief) Comments grossly intact. no motor deficit. not able to ascertain soft touch exam remotely. defer to on site mD Neurologic RN Documented GCS Eye Opening: Verbal: Motor: Total: Psychiatric (brief) FOUND: alert, oriented Comments flat affect Laboratory Laboratory Tests Test 11/11/16 18:13 11/11/16 18:26 11/11/16 18:50 11/11/16 18:59 Glucometer > 500mg/dL White Blood Count 11.9T/MM3 Red Blood Count 5.12M/MM3 Hemoglobin 15.6GM/DL Hematocrit 45.2% Mean Corpuscular Volume 88.3UM3 Mean Corpuscular Hemoglobin 30.5UUG Mean Corpuscular Hemoglobin Concent 34.5GM/DL RDW Standard Deviation 42.8FL Platelet Count 298T/MM3 Mean Platelet Volume 10.7UM3 Immature Granulocyte % (Auto) 0.3% Neutrophils (%) (Auto) 79.6% Lymphocytes (%) (Auto) 14.8% Monocytes (%) (Auto) 3.9% Eosinophils (%) (Auto) 0.8% Basophils (%) (Auto) 0.6% Absolute Immature Granulocyte (auto 0.03T/MM3 Absolute Neutrophils (auto) 9.5T/MM3 Absolute Lymphocytes (auto) 1.8T/MM3 Absolute Monocytes (auto) 0.5T/MM3 Absolute Eosinophils (auto) 0.1T/MM3 Absolute Basophils (auto) 0.1T/MM3 Turbidity < 20 < 20 Sodium Level 136MEQ/L 137MEQ/L Potassium Level 5.8MEQ/L 5.7MEQ/L Chloride Level 95MEQ/L 98MEQ/L Carbon Dioxide Level 10MEQ/L Anion Gap 31MEQ/L 32MEQ/L Blood Urea Nitrogen 32.0MG/DL 32.0MG/DL Creatinine 1.8MG/DL 1.7MG/DL Glomerular Filtration Rate Calc 41 43 BUN/Creatinine Ratio 18RATIO 19RATIO Glucose Level 677MG/DL Calculated Osmolality 301MOSM/KG 303MOSM/KG Calcium Level 9.6MG/DL 9.0MG/DL Total Bilirubin 1.00MG/DL Icterus Index < 2 < 2 Aspartate Amino Transf (AST/SGOT) 16U/L Alanine Aminotransferase (ALT/SGPT) 36U/L Alkaline Phosphatase 142U/L Troponin I < 0.012ng/ml Total Protein 7.2G/DL Albumin 4.5G/DL Globulin 2.7G/DL Albumin/Globulin Ratio 1.7RATIO Chemistry Specimen Hemolysis < 15 < 15 Urine Collection Type Cleancatch-midstream Urine Color Yellow Urine Turbidity Clear Urine pH 5.5 Urine Specific Gaylord 1.020 Urine Protein 1+ Urine Glucose (UA) 3+ Urine Ketones 3+ Urine Blood 2+ Urine Nitrite Negative Urine Bilirubin Negative Urine Urobilinogen 0.2EU/DL Urine Leukocyte Esterase Negative Urine RBC 0-1/HPF Urine WBC 0-1/HPF Urine Bacteria None seen Urine Culture Indicated Cult not indicated Test 11/11/16 19:27 11/11/16 19:52 11/11/16 20:11 Glucometer > 500mg/dL > 500mg/dL Venous Blood pH 7.090 Venous Blood Partial Pressure CO2 26MMHG Venous Blood Partial Pressure O2 36MMHG Venous Blood HCO3 8MEQ/L Venous Blood Total Carbon Dioxide 8.7MEQ/L Venous Blood Oxygen Saturation 45.0% Venous Blood Base Excess -20.5MMOL/L Oxygen Delivery Method (LAB) Room air Blood Gas Oxygen Liter Flow Blood Gas Oxygen Percent Given Radiology CT head reported as negative per ED MD Concerns For Adverse Events Concerns For Adverse Events Sepsis Diagnostic Criteria Sepsis Diagnostic Criteria Assessment & Plan Assessment & Plan Assessment 1. DKA acute POA: this is a very sig acidosis with pH of 7.09. Patient treated with 2 liters of NS in the ED and start insulin gtt. because of the degree of acidosis will check VBG in 2 hours. If not any better will need to start HCO3 gtt. K is elevated and soon will drop with improved acid/base. usual parameters for supplementation. as whole body depleted at this time. At the crux of this patient's issues is no insurance, no ability to check sugars. Junior need to address with social services aide prior to discharge 2. ARF POA: patient's cr up to 1.9 from 1.0. hydrate and repeat in the am. unlikely ATN. most likely pre renal 3. HTN chronic POA: hold antihypertensive meds acutely as blood pressure somewhat low on presentation 4. tobacco abuse chronic POA: patch, school counsellor to stop, patient not very interested 5. dVT ppx: SCD, heparin 6. gastric ppx: PPI 7. social dysfunction: need to consult social services aide priro to discharge to address access to supplies 8. foot drop left leg chronic POA: s/p back surgery ICU admission 45 min critical care time spent. DVT Prophylaxis: SCD'S, SQ Heparin Code Status Full Code Hospital Course I have read and reviewed the history and physical performed by the tele- hospitalist. I agree with all of the findings: HPI, personal histories, review of systems, physical findings, assessment and plan. I've enclosed this in the HPI. During the course of the day, I continued to manage the patient's diabetic ketoacidosis to complete his electrolyte recovery and hyperglycemia. His anionic gap closed nicely and he was able to maintain an adequate glucose below 200. He was discharged off of the insulin drip converted to a carbohydrate controlled diet. Physical exam findings: Vital Signs 11/12/16 11/12/16 11/12/16 11/12/16 07:01 08:00 08:00 09:01 Pulse 76 80 77 81 Resp 17 18 13 14 B/P 124/58 121/58 149/70 Pulse Ox 98 97 97 11/12/16 11/12/16 11/12/16 11/12/16 10:01 11:00 12:00 12:00 Temp 97.8 Pulse 84 78 82 77 Resp 12 16 42 B/P 156/74 136/64 145/67 Pulse Ox 98 100 100 O2 Delivery Room Air Room Air Room Air 11/12/16 11/12/16 11/12/16/21/17 12:38 13:01 14:00 15:00 Pulse 74 70 69 72 Resp 21 16 16 11 B/P 143/62 127/59 136/70 151/76 Pulse Ox 100 100 100 100 O2 Delivery Room Air Room Air Room Air Room Air 11/12/16 11/12/16 16:00 16:00 Pulse 78 75 Resp 18 B/P 159/73 Pulse Ox 97 O2 Delivery Room Air Gen. alert and oriented moving all limbs conversant and moderately agitated H EENT: neck is supple, no JVD, no lymphadenopathy chest: clear to auscultation bilaterally with good excursion, no wheezes rhonchi or rails cardiovascular: clear to auscultation bilaterally but no murmurs rubs or gallops G.I. abdomen: softer nontender with bowel sounds moderate extremities: no edema cyanosis or clubbing neurological: alert and oriented memory recent and distant are intact moves all limbs without deficits psychological: patient is highly irritated at his current status in hospital and is a limiting factor in completing the sensory component of the neurological exam He remained uncomfortable with the idea of numbness and tingling sensation throughout his body especially at the extremities, however he displayed no lateral lysing symptoms or problems consciousness and the symptomatology correlates quite nicely with his poorly controlled diabetes. Critical care time: 40 minutes additional tele-hospitalist medical management Problems: Code Status Full Code Home Meds Reported Medications Aspirin (Aspirin) 81 Mg Tab.chew, 81 MG PO DAILY 11/11/16 Bisoprol/Hydrochlorothiazide (Bisoprolol-Hctz 10-6.25 mg Tab) 1 Tab Tablet, 1 TAB PO DAILY 11/11/16 Gabapentin (Gabapentin) 600 Mg Tablet, 600 MG PO HS 11/11/16 Ibuprofen/Diphenhydramine Cit (Advil Pm Caplet) 1 Each Tablet, 2 CAP PO HS 11/11/16 Fexofenadine HCl (Fexofenadine HCl) 30 Mg/5 Ml Oral.susp, 10 ML PO HS 11/11/16 Insulin Glargine,Hum.rec.anlog (Toujeo Solostar) 300 Unit/1 Ml Insuln.pen, 30 UNIT SQ DAILY 11/11/16 Insulin Lispro (Humalog) 100 Unit/1 Ml Insuln.pen, 30 UNIT SQ TID, SYRINGE 04/10/15 Face to Face Encounter I met with patient on the day of dismissal and discussed follow up appointments , medications, and safety plan. Discharge Disposition Good and stable. Patients diabetic ketoacidosis corrected very quickly and I would've liked to have kept him for an additional day however patient was quite anxious and rightly concerned about his bill for his hospitalization and was urgent to return home as quickly as possible. The major step to overcome is not the patient compliance but his lack of resources and so I'm discharging him quicker than anticipated from hospital with follow-up from case management to assist him in getting a glucose monitor strips and lancets. It is incomplete treatment for the patient to simply take his insulin without knowing if he needs to correct his dose to meet the routine variation that comes with a diet. Copies To 1: STEVE ESCOBAR MD Documentation Requirements Diabetes Diabetes Type: Type 1 Diabetes Is Diabetes Contolled?: Uncontolled Related to Diabetes: Related to Comments Patient is compliant to his insulin. It is his lack of resources that caused him to be unable to check his blood sugar and eventually wound him up in the ICU for diabetic ketoacidosis. JESÚS FORREST MD November 12, 2016 16:48
[2016-11-12] MEDS ORDERED: INSULIN GLARGINE 100 UNIT/ML SQ SCH (22:00)
[2016-11-13] MEDS ORDERED: INSULIN ASPART 100 UNIT/ML SQ SCH ×2 (07:45→11:45)
--- NOTE | 2016-11-13 10:52 | NUR ---
DM screen (late entry) Pt was admitted and discharged during weekend, when there is no RD coverage. RD will followup on DM screen.
--- NOTE | 2016-11-13 10:54 | NUR ---
CM FOLLOW UP THIS WORKER ATTEMPTED TO REACH PT ON THIS DATE FOR FOLLOW UP. SPOKE TO PT'S MOTHER (ANJELICA) WHO PROVIDED A CELL PHONE NUMBER FOR PT [phone]. THIS NUMBER DID NOT HAVE ABILITY TO LEAVE MESSAGE. THIS WORKER ALSO CALLED [phone] AND ALSO WAS NOT ABLE TO LEAVE MESSAGE. THIS WORKER THEN CALLED PT'S MOTHER AND SPOKE TO HER AND ASKED THAT MY NAME AND NUMBER BE GIVEN TO PT IF POSSIBLE. PT'S MOTHER REPORTED THAT SHE WOULD TRY TO GET HIM THE NUMBER, BUT THAT HE WAS NOT REALLY TALKING TO HER RIGHT NOW. .
== END 2016-11-12 17:10 | disposition home or self-care (01) | DRG 638 ==
LOC: ED 17:24 → EDHOLD 19:28 → CCU 20:15
PROVIDERS: ADMIT Emergency Medicine; ATTEND Family Medicine
DX: E10.10 Type 1 diabetes mellitus with ketoacidosis without coma (principal); N17.9 Acute kidney failure, unspecified; E87.5 Hyperkalemia; E10.40 Type 1 diabetes mellitus with diabetic neuropathy, unspecified; I10 Essential (primary) hypertension; F17.200 Nicotine dependence, unspecified, uncomplicated; M21.372 Foot drop, left foot; Z59.8 Other problems related to housing and economic circumstances; Z79.82 Long term (current) use of aspirin; Z79.4 Long term (current) use of insulin
CPT/HCPCS: 36415; 80048; 80053; 81001; 82803; 82948; 84484; 85025; 96361; 96374; 96375